=== PATIENT | female | born 1970 | race Caucasian/White ===

== ENCOUNTER 2022-06-16 17:19 | Inpatient (IN) | payer MEDICAID ==
[~2022-06-16] VITALS: Ht 165.1 cm; Wt 100.0 kg
[~2022-06-16 17:19] MED LIST: CLIN150C2 PO; FERR325T28 PO; MUPI22OI26 TP; NO HOME MEDS; VITC500T PO
[2022-06-16 18:47] LABS: ALANINE AMINOTRANSFERASE 18 U/L (12-78); ALBUMIN 3.6 G/DL (3.4-5.0); ALBUMIN/GLOBULIN RATIO 1.1 (1.1-1.5); ALKALINE PHOSPHATASE 85 IU/L (46-116); ANION GAP 9 (8-16); ASPARTATE AMINO TRANSFERASE 14 U/L (10-37); BILIRUBIN,TOTAL 0.3 MG/DL (0.1-1.0); BLOOD UREA NITROGEN 15 MG/DL (7-18); BUN/CREATININE RATIO 20.3 (6.6-38.0); CALCIUM 8.5 MG/DL (8.5-10.1); CHLORIDE 104 MMOL/L (99-107); CREATININE 0.74 MG/DL (0.40-0.90); GLUCOSE 89 MG/DL (70-104); POTASSIUM 3.9 MMOL/L (3.5-5.1); SODIUM 139 MMOL/L (135-145); TOTAL CARBON DIOXIDE 26.1 MMOL/L (24-32); TOTAL PROTEIN 6.9 G/DL (6.4-8.2); eGFR 83 ML/MIN
[2022-06-16 19:07] LABS: BASOPHILS # (AUTO) 0.1 X10'3 (0-0.2); BASOPHILS % (AUTO) 1.1 % (0-1); EOSINOPHILS # (AUTO) 0.3 X10'3 (0-0.9); EOSINOPHILS % (AUTO) 6.2 % (0-6); LYMPHOCYTES # (AUTO) 1.8 X10'3 (1.1-4.8); LYMPHOCYTES % (AUTO) 35.3 % (21-51); MEAN PLATELET VOLUME 8.8 FL (7.4-10.4); MONOCYTES # (AUTO) 0.4 X10'3 (0-0.9); MONOCYTES % (AUTO) 7.6 % (2-12); NEUTROPHILS # (AUTO) 2.6 X10'3 (1.8-7.7); NEUTROPHILS % (AUTO) 49.8 % (42-75); PLATELET COUNT 400 X10'3 (140-440); RED BLOOD COUNT 3.32 X10'6 (4.20-5.60); WHITE BLOOD COUNT 5.2 X10'3 (4.5-11.0)
[2022-06-16 19:08] LABS: MEAN CORPUSCULAR HGB CONC 30.7 g/dL (33.0-36.5); MEAN CORPUSCULAR VOLUME 55.6 FL (78-98); RED CELL DISTRIBUTION WIDTH 20.8 % (11.5-14.5)
[2022-06-16 19:10] LABS: HEMATOCRIT 18.5 % (35.0-45.0); HEMOGLOBIN 5.7 g/dl (12.0-16.0)
[2022-06-16 19:19] LABS: ANISOCYTOSIS 3+; MICROCYTOSIS 3+; PLATELET ESTIMATE NORMAL
[2022-06-16 19:20] LABS: HYPOCHROMASIA 3+; POLYCHROMASIA FEW
[2022-06-16 19:21] LABS: ELLIPTOCYTES FEW; TEAR DROP CELLS FEW
[2022-06-16] MEDS ORDERED: pantoprazole IV 80 MG in normal saline 100ml IV soln 100 ML IV ONE (20:25)
[2022-06-16] MEDS: pantoprazole 40MG/NS 100ML BAG 100 ML IV SCH ×2 (20:51→21:05)
[2022-06-16] MEDS ORDERED: normal saline 1000ml 1,000 ML IV SCH (21:00)
[2022-06-16] MEDS ORDERED: acetaminophen 325mg tablet PO PRN (21:00)
[2022-06-16] MEDS ORDERED: magnesium Cl slow-release 64mg tablet PO PRN (21:00)
[2022-06-16] MEDS ORDERED: morphine 2 MG/ML inj. syringe IV PRN (21:00)
[2022-06-16] MEDS ORDERED: magnesium 4gm in 100ml NS 100 ML IV PRN (21:00)
[2022-06-16] MEDS ORDERED: magnesium 2GM in 50ml NS 50 ML IV PRN (21:00)
[2022-06-16] MEDS ORDERED: POTASSIUM BICARB 20meq eff tab 20 MEQ TABLET.EFF PO PRN ×2 (21:00)
[2022-06-16] MEDS ORDERED: HYDROcodone/acetaminophen 5mg/325mg tablet PO PRN (21:00)
[2022-06-16] MEDS ORDERED: temazepam 15mg capsule PO PRN (21:00)
[2022-06-16] MEDS ORDERED: potassium CL 10mEq/100ml bag 100 ML IV PRN (21:00)
[2022-06-16] MEDS ORDERED: ondansetron/PF 4mg/2ml inj IV PRN (21:00)
[2022-06-16 21:47] LABS: % IRON SATURATION 2 % (11-46); IRON 8 UG/DL (49-151); TOTAL IRON BINDING CAPACITY 428 UG/DL (259-388)
[2022-06-16] MEDS ORDERED: FLUOXETINE (21:52)
[2022-06-16] MEDS ORDERED: GABA-534 PO (21:52)
[2022-06-16] MEDS ORDERED: QUET200T31 PO (21:52)
[2022-06-16 22:25] VITALS: BP 108/69
[2022-06-16 22:47] VITALS: BP 112/60
[2022-06-16] MEDS ORDERED: pantoprazole 40mg Tablet.DR PO SCH (23:30)
[2022-06-16] MEDS ORDERED: FLUO-1 PO (23:41)
[2022-06-16] MEDS ORDERED: FLUO-12 PO (23:44)
[2022-06-16 23:50] VITALS: BP 106/61
[2022-06-17 03:31] LABS: BASOPHILS % (AUTO) 0.7 % (0-1); EOSINOPHILS # (AUTO) 0.2 X10'3 (0-0.9); EOSINOPHILS % (AUTO) 4.5 % (0-6); LYMPHOCYTES # (AUTO) 1.3 X10'3 (1.1-4.8); LYMPHOCYTES % (AUTO) 32.4 % (21-51); MEAN CORPUSCULAR HGB CONC 28.2 g/dL (33.0-36.5); MEAN CORPUSCULAR VOLUME 60.4 FL (78-98); MEAN PLATELET VOLUME 8.4 FL (7.4-10.4); MONOCYTES # (AUTO) 0.3 X10'3 (0-0.9); MONOCYTES % (AUTO) 8.2 % (2-12); NEUTROPHILS # (AUTO) 2.2 X10'3 (1.8-7.7); NEUTROPHILS % (AUTO) 54.2 % (42-75); PLATELET COUNT 317 X10'3 (140-440); RED BLOOD COUNT 3.38 X10'6 (4.20-5.60); RED CELL DISTRIBUTION WIDTH 23.9 % (11.5-14.5); WHITE BLOOD COUNT 4.1 X10'3 (4.5-11.0)
--- NOTE | 2022-06-17 03:36 | NUR ---
ONE UNIT OF BLOOD ORDERED PER [facility]. CROSSED TYPED SECOND UNIT IF NEEDED.
[2022-06-17 03:41] LABS: ALANINE AMINOTRANSFERASE 13 U/L (12-78); ALBUMIN 3.1 G/DL (3.4-5.0); ALBUMIN/GLOBULIN RATIO 1.1 (1.1-1.5); ALKALINE PHOSPHATASE 69 IU/L (46-116); ANION GAP 8 (8-16); ASPARTATE AMINO TRANSFERASE 12 U/L (10-37); BILIRUBIN,TOTAL 1.3 MG/DL (0.1-1.0); BLOOD UREA NITROGEN 11 MG/DL (7-18); BUN/CREATININE RATIO 16.4 (6.6-38.0); CALCIUM 8.2 MG/DL (8.5-10.1); CHLORIDE 105 MMOL/L (99-107); CREATININE 0.67 MG/DL (0.40-0.90); GLUCOSE 81 MG/DL (70-104); POTASSIUM 3.6 MMOL/L (3.5-5.1); SODIUM 139 MMOL/L (135-145); TOTAL CARBON DIOXIDE 25.8 MMOL/L (24-32); eGFR > 90 ML/MIN
[2022-06-17 03:46] LABS: HEMATOCRIT 20.4 % (35.0-45.0); HEMOGLOBIN 5.8 g/dl (12.0-16.0)
--- NOTE | 2022-06-17 03:50 | NUR ---
H/H 5.[address] BAIRD. WAITING FOR CALL BACK.
--- NOTE | 2022-06-17 05:17 | NUR ---
DR. BAIRD WILL BE PUTTING IN NEW ORDER FOR BLOOD.
--- NOTE | 2022-06-17 05:22 | NUR ---
SPOKE WITH PT. ABOUT HAVING ANOTHER TRANSFUSION OF BLOOD. PT. REFUSED AND WANTS TO LEAVE AMA. NOTIFIED DR. BAIRD.
[2022-06-17 05:55] VITALS: BP 112/73
[2022-06-17] MEDS ORDERED: quetiapine 100mg tablet PO SCH (08:00)
[2022-06-17] MEDS ORDERED: pantoprazole 40MG/NS 100ML BAG 100 ML IV SCH (08:00)
[2022-06-17] MEDS ORDERED: K and/or MAG REPLACEMENT MC SCH (08:00)
[2022-06-17] MEDS ORDERED: FLUoxetine 20mg capsule PO SCH (08:00)
[2022-06-17] MEDS ORDERED: gabapentin 400mg capsule PO SCH (08:00)
== END 2022-06-17 05:55 | disposition left against medical advice (07) | DRG 663 ==
LOC: ER 17:20 → ED HOLD 21:05
PROVIDERS: ADMIT Internal Medicine; ATTEND Family Medicine
PROC: 30233N1 Transfusion of Nonautologous Red Blood Cells into Peripheral Vein, Percutaneous Approach (ICD-10-PCS; principal; 2022-06-16)
DX: D50.9 Iron deficiency anemia, unspecified (principal); F17.210 Nicotine dependence, cigarettes, uncomplicated; F32.A Depression, unspecified; G89.29 Other chronic pain; Z53.29 Procedure and treatment not carried out because of patient's decision for other reasons; M54.9 Dorsalgia, unspecified; Z98.84 Bariatric surgery status; Z88.8 Allergy status to other drugs, medicaments and biological substances
CPT/HCPCS: 36415; 36430; 80053; 83540; 83550; 85008; 85025; 86885; 86900; 86901; 86920; 99285; C9113; G0378; J7030; J7050; P9016

== ENCOUNTER 2022-07-06 10:10 | Emergency (ER) | payer MEDICAID ==
[~2022-07-06] VITALS: Ht 165.1 cm; Wt 100.0 kg
[~2022-07-06 10:10] MED LIST changes: -CLIN150C2 PO; -FERR325T28 PO; +FLUO-12 PO; +GABA-534 PO; -MUPI22OI26 TP; +QUET200T31 PO; -VITC500T PO
[2022-07-06 11:21] LABS: BASOPHILS % (AUTO) 0.8 % (0-1); EOSINOPHILS # (AUTO) 0.3 X10'3 (0-0.9); EOSINOPHILS % (AUTO) 8.6 % (0-6); LYMPHOCYTES # (AUTO) 1.3 X10'3 (1.1-4.8); LYMPHOCYTES % (AUTO) 32.1 % (21-51); MEAN PLATELET VOLUME 8.2 FL (7.4-10.4); MONOCYTES # (AUTO) 0.2 X10'3 (0-0.9); MONOCYTES % (AUTO) 5.7 % (2-12); NEUTROPHILS # (AUTO) 2.2 X10'3 (1.8-7.7); NEUTROPHILS % (AUTO) 52.8 % (42-75); PLATELET COUNT 416 X10'3 (140-440); RED BLOOD COUNT 3.98 X10'6 (4.20-5.60); WHITE BLOOD COUNT 4.1 X10'3 (4.5-11.0)
[2022-07-06 11:35] LABS: ALANINE AMINOTRANSFERASE 22 U/L (12-78); ALBUMIN 3.6 G/DL (3.4-5.0); ALBUMIN/GLOBULIN RATIO 1.1 (1.1-1.5); ALKALINE PHOSPHATASE 92 IU/L (46-116); ANION GAP 5 (8-16); ASPARTATE AMINO TRANSFERASE 17 U/L (10-37); BILIRUBIN,TOTAL 0.4 MG/DL (0.1-1.0); BLOOD UREA NITROGEN 13 MG/DL (7-18); BUN/CREATININE RATIO 18.6 (6.6-38.0); CALCIUM 8.6 MG/DL (8.5-10.1); CHLORIDE 106 MMOL/L (99-107); GLUCOSE 86 MG/DL (70-104); POTASSIUM 4.3 MMOL/L (3.5-5.1); SODIUM 141 MMOL/L (135-145); TOTAL CARBON DIOXIDE 29.9 MMOL/L (24-32); eGFR 88 ML/MIN
[2022-07-06 11:52] LABS: HEMOGLOBIN 7.7 g/dl (12.0-16.0)
[2022-07-06 11:53] LABS: HEMATOCRIT 25.4 % (35.0-45.0); MEAN CORPUSCULAR HEMOGLOBIN 19.3 PG (27.0-31.0); MEAN CORPUSCULAR HGB CONC 30.1 g/dL (33.0-36.5); MEAN CORPUSCULAR VOLUME 64.2 FL (78-98); RED CELL DISTRIBUTION WIDTH 30.2 % (11.5-14.5)
[2022-07-06 12:08] LABS: PLATELET ESTIMATE NORMAL
[2022-07-06 12:09] LABS: ANISOCYTOSIS 3+; HYPOCHROMASIA 2+; MICROCYTOSIS 2+
[2022-07-06 12:10] LABS: ELLIPTOCYTES FEW; STOMATOCYTES 1+; TEAR DROP CELLS FEW
[2022-07-06] MEDS ORDERED: sodium ferric gluc complex inj 125 MG in normal saline 100ml IV soln 100 ML IV ONE (12:15)
[2022-07-06 13:51] VITALS: BP 121/69
== END 2022-07-06 13:52 | disposition home or self-care (01) ==
LOC: ER 10:11
DX: D50.9 Iron deficiency anemia, unspecified (principal); Z86.2 Personal history of diseases of the blood and blood-forming organs and certain disorders involving the immune mechanism; Z98.890 Other specified postprocedural states; Z88.6 Allergy status to analgesic agent; Z79.899 Other long term (current) drug therapy
CPT/HCPCS: 36415; 80053; 85008; 85025; 96365; 99284; J2916; J3490